=== PATIENT | female | born 1945 | race Hispanic/Latino ===

== ENCOUNTER 2018-03-02 08:52 | Day surgery (SDC) | payer MEDICARE, BC ==
[2018-02-23 11:21] VITALS: BMI 36.6
[2018-03-02 09:49] LABS: BASO # 0.02 K/mm3 (0.0-2.0); BASO % 0.4 % (0.0-3.0); EOS # 0.2 (0.0-0.7); EOS % 4.1 % (1.5-5.0); GRAN # 2.57 (1.4-6.5); GRAN % 56.1 % (50.0-68.0); HEMOGLOBIN 12.8 g/dL (12.0-16.0); LYMPH # 1.3 (1.2-3.4); LYMPH % 28.5 % (22.0-35.0); MEAN CELL VOLUME 90.5 fl (80.0-105.0); MEAN CORPUSCULAR HEMOGLOBIN 30.3 pg (25.0-35.0); MEAN CORPUSCULAR HGB CONC 33.5 g/dl (31.0-37.0); MEAN PLATELET VOLUME 10.6 fl (7.0-11.0); MONO # 0.5 (0.1-0.6); MONO % 10.9 % (1.0-6.0); RBC 4.22 10^6/uL (3.5-6.1); WHITE BLOOD COUNT 4.6 10^3/ul (4.5-11.0)
[2018-03-02 09:53] LABS: INR 0.98; PROTHROMBIN TIME 11.3 SECONDS (9.4-12.5)
[2018-03-02 09:54] LABS: BLOOD UREA NITROGEN 16 mg/dL (7-21); CALCIUM 9.7 mg/dL (8.4-10.5); GFR NON-AFRICAN AMERICAN > 60; HDL CHOLESTEROL 83 mg/dL (29-60)
[2018-03-02 10:05] LABS: LDL CHOLESTEROL 57 mg/dL (0-129)
[2018-03-02] MEDS ORDERED: Lidocaine 2% PF (10 ml) Amp ONE (11:28)
[2018-03-02] MEDS ORDERED: Iohexol 350mgl/ml 50 ML ONE (11:29)
[2018-03-02] MEDS ORDERED: Iodixanol 320 MG/ML 100 ML BOTTLE IV ONE (11:31)
[2018-03-02] MEDS ORDERED: Midazolam 2 MG/2 ML VIAL ONE ×2 (11:33→11:58)
[2018-03-02] MEDS ORDERED: Verapamil 2 ML ONE (11:35)
[2018-03-02] MEDS ORDERED: Nitroglycerin 50mg in D5W 50 MG/250 ML BOTTLE IV ONE (11:35)
--- NOTE | 2018-03-02 11:43 | PCM.IRPREO ---
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 - Previous Medical/Surgical History Cardiac: Hypertension Neuro: TIA/CVA, Headaches - Pre Procedure Were any radiologic studies performed in the last 12 months: Yes List of radiologic studies performed: MRi brain and MRA head Was medical management performed in the past 24 months: Yes List of medical management performed: Aspirin, Plavix and statin Clinical indication for the procedure: Intracranial Stenosis possibly symptomatic Have risks and benefits been explained to the patient: Yes Risks and benefits been explained to the patient: I had a detailed discussion with the patient regarding the risks inluding stroke, serious neurological morbidity and even mortality, benefits and alternatives to the procedure and the patient prefers to proceed with the angiogram Have alternatives to surgery explained to the patient as applicable: Yes - Allergies Allergies: Allergies No Known Allergies Allergy (Verified 01/12/16 17:49) - Physical Exam Vital Signs: Vital Signs 03/02/18 09:10 Temperature 98.1 F Pulse Rate 71 Respiratory 20 Rate Blood Pressure 142/81 O2 Sat by Pulse 98 Oximetry Mental Status: Alert & Oriented x3 Neuro: WNL - Specialist Directed Exam Abdomen: WNL ENT: WNL - Impression Impression: Intracranial atherosclerotic disease possibly symptomatic Pt. Evaluated Today:Candidate for Anesthesia & Procedure: Yes - Date & Time Date: 03/02/18 Time: 11:44
--- NOTE | 2018-03-02 13:02 | PCM.SURG1 ---
Surgeon's Initial Post Op Note - Surgeon's Notes Surgeon: Dr. Rojas Horse Race Timer: Mr. Avelar Type of Anesthesia: Moderate Sedation{RN} Anesthesia Administered By: Dr. Rojas Pre-Operative Diagnosis: Intracranial Atherosclerotic Disease Operative Findings: Basilar Artery Occlusion in its mid portion Post-Operative Diagnosis: Basilar Artery Occlusion in its mid portion. 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
[2018-03-02 14:33] VITALS: RESP 18; TEMP 97.8
[2018-03-02 16:00] VITALS: BP 122/68; PULSE 67; O2SAT 97
== END 2018-03-02 16:00 | disposition home or self-care (01) ==
LOC: CATH 08:52
PROVIDERS: ATTEND Psychiatry & Neurology Vascular Neurology
DX: I65.1 Occlusion and stenosis of basilar artery (principal); I65.02 Occlusion and stenosis of left vertebral artery; I10 Essential (primary) hypertension
CPT/HCPCS: 36224; 36225; 36226; 36415; 80048; 80061; 85025; 85610; 85730; 86850; 86900; 99152; 99153; C1769 ×3; C1887; C1894; J1644 ×2; J2250; J3010; Q9967 ×2